=== PATIENT | male | born 2000 | race Caucasian/White ===

== ENCOUNTER 2024-11-26 11:17 | Emergency (ER) | payer BC ==
[~2024-11-26] VITALS: Ht 175.3 cm; Wt 103.1 kg
[~2024-11-26 11:17] MED LIST: ALBUTEROL SULF8.5 GM INH; ANIMAL SHAPES1 EAC3 PO; CLARITIN10 MG PO; RITALIN5 MG PO; SINGULAIR5 MG PO
[2024-11-26] MEDS ORDERED: ALBUTEROL/IPRATROPIUM 3 ML NEB INH ONE (11:45)
[2024-11-26] MEDS ORDERED: ALBUTEROL SULFATE 0.5% 2.5 MG/0.5 ML VIAL INH ONE (12:15)
[2024-11-26 12:19] LABS: BASOPHILS 0.4 % (0.2-1.2); EOSINOPHILS 5.7 % (0.8-7.0); LYMPHOCYTES 15.0 % (21.8-53.1); MCH 28.1 PG (25.7-32.2); MCHC 34.1 g/dL (32.3-36.5); MCV 82.5 fL (79.0-92.2); MONOCYTES 6.2 % (5.3-12.2); NEUTROPHILS 72.5 % (34.0-67.9); RBC 5.72 M/uL (4.63-6.08)
[2024-11-26 12:26] LABS: GLOMERULAR FILTRATION RATE,EST 122.0 mL/min (>60); UREA NITROGEN 8.0 mg/dL (7-18)
[2024-11-26] MEDS ORDERED: PREDNISONE20 MG PO (14:31)
[2024-11-26 14:41] VITALS: BP 136/72
== END 2024-11-26 14:41 | disposition home or self-care (01) ==
LOC: ED 11:17
PROVIDERS: Emergency Medicine
DX: J45.901 Unspecified asthma with (acute) exacerbation (principal); Z79.899 Other long term (current) drug therapy
CPT/HCPCS: 36415; 80048; 85025; 94640; 94644; 96374; 99285-25; J2919